=== PATIENT | female | born 1960 ===

== ENCOUNTER 2018-06-30 20:24 | Emergency (ER) | payer MEDICAID ==
[2018-06-30 20:39] VITALS: BP 97/62; PULSE 95; RESP 20; TEMP 98.1; O2SAT 97
--- NOTE | 2018-06-30 21:36 | C.PDOC ---
History Of Present Illness 58 y/o female presents with 1 month of pain in the right thigh. No injury or trauma. Pain is worse with walking and when pressing on the area. [place] [facility] [place] with Percocet, which she ran out of. States she has not yet followed up with an orthopedist. Patient also saw her PMD on 06/15 for same complaint, was prescribed gabapentin, with minimal relief. She denies any numbness, tingling, or focal weakness. Time Seen by Provider: 06/30/18 21:01 Chief Complaint (Nursing): Lower Extremity Problem/Injury History Per: Patient History/Exam Limitations: no limitations Onset/Duration Of Symptoms: Days Current Symptoms Are (Timing): Still Present Past Medical History Reviewed: Historical Data, Nursing Documentation, Vital Signs Vital Signs: Last Vital Signs Temp 98.1 F 06/30/18 20:35 Pulse 95 H 06/30/18 20:35 Resp 20 06/30/18 20:35 BP 97/62 L 06/30/18 20:35 Pulse Ox 97 06/30/18 20:35 - Medical History PMH: Asthma, HTN Family History: States: No Known Family Hx - Social History Hx Alcohol Use: No Hx Substance Use: No Review Of Systems Constitutional: Negative for: Fever, Chills, Weakness Eyes: Negative for: Redness, Other (scleral icterus) ENT: Negative for: Mouth Swelling Cardiovascular: Negative for: Chest Pain Respiratory: Negative for: Cough, Shortness of Breath Gastrointestinal: Negative for: Nausea, Vomiting, Diarrhea Genitourinary: Negative for: Dysuria, Hematuria Musculoskeletal: Positive for: Leg Pain (right thigh). Negative for: Back Pain Skin: Negative for: Rash Neurological: Negative for: Weakness, Numbness, Dizziness Physical Exam - Physical Exam Appears: Well, Non-toxic, No Acute Distress Skin: Normal Color, Warm, No Rash Head: Atraumatic, Normacephalic Eye(s): bilateral: Normal Inspection, PERRL, EOMI Oral Mucosa: Moist Neck: Normal ROM, Supple Chest: Symmetrical Respiratory: No Accessory Muscle Use, Other (Normal inspiratory effort) Back: No Vertebral Tenderness, Other (Ambulating with steady upright gait) Extremity: Normal ROM (No pain with rom of the right hip, able to weight bear), Tenderness (to right lateral thigh), Capillary Refill (less than 2 sec), No Deformity, No Swelling Pulses: Left Dorsalis Pedis: Normal, Right Dorsalis Pedis: Normal Neurological/Psych: Oriented x3 ED Course And Treatment O2 Sat by Pulse Oximetry: 97 (RA) Pulse Ox Interpretation: Normal Medical Decision Making Medical Decision Making: Impression: Right leg pain for 1 month Plan: Disposition Counseled Patient/Family Regarding: Diagnosis, Need For Followup, Rx Given - Disposition Referrals: Jacobo Mckeon MD [Staff Provider] - Disposition: HOME/ ROUTINE Disposition Time: 21:54 Condition: STABLE Additional Instructions: NABILA MIJARES, thank you for letting us take care of you today. Your provider was Romeo Ryan MD and you were treated for RT LEG PAIN. The emergency medical care you received today was directed at your acute symptoms. If you were prescribed any medication, please fill it and take as directed. It may take several days for your symptoms to resolve. Return to the Emergency Department if your symptoms worsen, do not improve, or if you have any other problems. Please contact your doctor or call one of the physicians/clinics you have been referred to that are listed on the Patient Visit Information form that is included in your discharge packet. Bring any paperwork you were given at discharge with you along with any medications you are taking to your follow up visit. Our treatment cannot replace ongoing medical care by a primary care provider outside of the emergency department. Thank you for allowing the [facility] team to be part of your care today. Prescriptions: traMADol [Ultram] 50 mg PO BID PRN #10 tab PRN Reason: Pain, Severe (8-10) Forms: [employer] (Honduran), General Discharge Instructions - Clinical Impression Clinical Impression: Right thigh pain - PA / [employer] / Resident Statement MD/DO has reviewed & agrees with the documentation as recorded. - Scribe Statement The provider has reviewed the documentation as recorded by the Paolaibcarmelita Liang All medical record entries made by the Scribe were at my direction and personally dictated by me. I have reviewed the chart and agree that the record accurately reflects my personal performance of the history, physical exam, medical decision making, and the department course for this patient. I have also personally directed, reviewed, and agree with the discharge instructions and disposition.
== END 2018-06-30 22:16 | disposition home or self-care (01) ==
LOC: C.ER 20:24
DX: M79.651 Pain in right thigh (principal)